=== PATIENT | female | born 1945 | race Caucasian/White ===

== ENCOUNTER 2023-06-30 07:44 | Inpatient (IN) | payer OTHER ==
[~2023-06-30] VITALS: Ht 152.4 cm; Wt 83.0 kg
[~2023-06-30 07:44] MED LIST: CEFAZOLIN SOD 2 GM in D5W 50 ML IV ONE
[2023-06-30] MEDS ORDERED: CELECOXIB 100 MG CAPSULE ONE (08:19)
[2023-06-30] MEDS ORDERED: ACETAMINOPHEN 500 MG TABLET ONE (08:19)
[2023-06-30] MEDS ORDERED: SCOPOLAMINE HYDROBROMIDE 1 MG PATCH .72 H (TRANSDERM-SCOP) TD ONE (08:19)
[2023-06-30] MEDS ORDERED: GABAPENTIN 300 MG CAPSULE ONE (08:20)
[2023-06-30] MEDS ORDERED: oxyCODONE HCL 10 MG TAB.ER.12H PO ONE (08:20)
[2023-06-30] MEDS: CELECOXIB 100 MG CAPSULE PO ONE (08:48)
[2023-06-30] MEDS: ACETAMINOPHEN 500 MG TABLET PO ONE (08:48)
[2023-06-30] MEDS: SCOPOLAMINE HYDROBROMIDE 1 MG PATCH .72 H (TRANSDERM-SCOP) TD ONE (08:48)
[2023-06-30] MEDS: GABAPENTIN 300 MG CAPSULE PO ONE (08:48)
[2023-06-30] MEDS: oxyCODONE HCL 10 MG TAB.ER.12H PO ONE (09:55)
[2023-06-30] MEDS ORDERED: BUPIVACAINE /PF 0.25% 30 ML VIAL INJ ONE (10:00)
[2023-06-30 10:05] VITALS: RESP 20; TEMP 97.7
[2023-06-30] MEDS ORDERED: LORATADINE 10 MG TABLET PO PRN (11:00)
[2023-06-30] MEDS ORDERED: oxyCODONE HCL 5 MG TABLET PO PRN ×2 (11:00)
[2023-06-30] MEDS ORDERED: LR 1,000 ML IV SCH (11:00)
[2023-06-30] MEDS ORDERED: MEPERIDINE HCL/PF 25 MG/ML DISP.SYRIN IVP PRN (11:00)
[2023-06-30] MEDS ORDERED: traMADol HCL HCL 50 MG TABLET (ULTRAM) PO PRN (11:00)
[2023-06-30] MEDS ORDERED: HYDROmorphone 1 MG/ML INJ. CARTRIDGE IVP PRN ×3 (11:00)
[2023-06-30] MEDS ORDERED: ONDANSETRON HCL 4 MG/2 ML VIAL IVP PRN (11:45)
[2023-06-30] MEDS ORDERED: ONDANSETRON HCL 4 MG/2 ML VIAL ONE (12:10)
[2023-06-30] MEDS: ONDANSETRON HCL 4 MG/2 ML VIAL IVP PRN (12:18)
[2023-06-30 13:37] VITALS: BP_SYST 148; PULSE 60; O2SAT 98
[2023-06-30] MEDS ORDERED: ACETAMINOPHEN 500 MG TABLET PO SCH (14:00)
[2023-06-30] MEDS ORDERED: KETOROLAC TROMETHAMINE 10 MG TABLET (TORADOL) PO SCH (14:00)
[2023-06-30] MEDS ORDERED: HYDROmorphone 1 MG/ML INJ. CARTRIDGE ONE (14:12)
[2023-06-30] MEDS ORDERED: NALOXONE HCL 0.4 MG/ML AMP (NARCAN) IVP PRN ×3 (14:15)
[2023-06-30] MEDS ORDERED: LACTULOSE 20 GM/30 ML UDC PO PRN (14:15)
[2023-06-30] MEDS ORDERED: BISACODYL 10 MG/SUPPOSITORY RC PRN (14:15)
[2023-06-30] MEDS ORDERED: DIPHENHYDRAMINE HCL 25 MG CAPSULE PO PRN (14:15)
[2023-06-30] MEDS ORDERED: METOCLOPRAMIDE HCL 10 MG/2 ML VIAL IVP PRN (14:15)
[2023-06-30] MEDS: HYDROmorphone 1 MG/ML INJ. CARTRIDGE IVP PRN ×2 (14:15)
[2023-06-30] MEDS ORDERED: SENNOSIDES/DOCUSATE SODIUM 1 TAB TABLET(SENOKOT-S) PO SCH (21:00)
[2023-07-01] MEDS ORDERED: ASPIRIN 81 MG TAB.CHEW PO SCH (09:00)
[2023-07-01] MEDS ORDERED: CELECOXIB 200 MG CAPSULE PO SCH (11:00)
== END 2023-06-30 16:00 | disposition home health service (06) | DRG 470 ==
LOC: SMU 07:44
PROVIDERS: ADMIT Student in an Organized Health Care Education/Training Program; ATTEND Student in an Organized Health Care Education/Training Program
PROC: 0SRC0J9 Replacement of Right Knee Joint with Synthetic Substitute, Cemented, Open Approach (ICD-10-PCS; principal; 2023-06-30 10:02)
DX: M17.11 Unilateral primary osteoarthritis, right knee (principal); Z91.048 Other nonmedicinal substance allergy status
CPT/HCPCS: 73560; 82948; 87081; 88305; 88311; 96379; 97110-GP; 97116-GP; 97530-GP; C1713; C1776; J0690; J0696; J1170; J2405; J3010; J3370; J3465; J3490; J7060; J7120